=== PATIENT | female | born 1985 | race Caucasian/White ===

== ENCOUNTER 2023-06-24 09:29 | Outpatient (AMB) | payer SELFPAY ==
--- NOTE | 2023-06-24 11:19 | AM.OFFWIN_ITS ---
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 Patient Tobacco Use Status: Never used Tobacco Allergies No Known Allergies [No Known Allergies*] Allergy (Unverified 06/24/23 11:23) Do you need a note to return to daycare/school/sports/work: Yes HPI HPI Comments History of Present Illness Details Patient is a 38-year-old female in today for a sick visit she has no significant past medical history. She is not currently take any medications. She has developed symptoms of cough, sore throat, phlegm production (green), headache. She states that her son at home has similar symptoms. Cough gets worse at night. Denies dizziness, chest pain, shortness a breath, dyspnea on exertion, vomiting, diarrhea. [facility] Social History Patient Tobacco Use Status: Never used Tobacco Review of Systems Const Details: Constitutional : No Weight loss, No Fever, No Chills, No Fatigue, Admits some Malaise ENT/Mouth : Admits sore throat, No Rhinorrhea Eyes: No Eye Pain, No Swelling, No Redness Cardiovascular : No Chest Pain, No SOB, No Dyspnea on Exertion, No Orthopnea, No Edema, No Palpitations Respiratory : Admits Cough, Admits Sputum, No Wheezing Gastrointestinal : No Nausea, No Vomiting, No Diarrhea, No Constipation, No abdominal Pain, No Hematochezia, No Melena Genitourinary : No Dysuria, No Urinary Frequency, No Hematuria, Musculoskeletal : No joint pain, No Myalgias, No Joint Swelling Skin : No Skin Lesions, No rash Neuro : No Weakness, No Numbness, No Dizziness, No Headache Psych : No Anxiety/Panic, No Depression Heme/Lymph: No Bruising, No Bleeding,No Lymphadenopathy Endocrine : No Polyuria, No Polydipsia All other systems reviewed and are negative Physical Exam Vital Signs: Last Vital Signs Temp 98.2 F 06/24/23 11:21 Pulse 87 06/24/23 11:21 BP 118/64 06/24/23 11:21 Pulse Ox 98 06/24/23 11:21 Oxygen Delivery Method Room Air 06/24/23 11:21 BMI result Body Mass Index 27.6 Vital signs reviewed stable Const Other: Appearance: Alert.? Oriented X3.? No acute distress.? Head: Normocephalic, atraumatic, no step-offs or deformities Eyes: Pupils equal, round and reactive to light.? ENT: Pharynx normal.?TM intact, pearly jose. Positive for fusion. Neck: Normal inspection.? Neck supple.?Full ROM CVS: Normal heart rate and rhythm.? Pulses normal.? Respiratory: No respiratory distress.? Breath sounds normal.? Neuro: Oriented X 3.? No motor deficit.? No sensory deficit. CN 2-12 intact Assessment & Plan Assessment & Plan (1) Upper respiratory infection: Comment: Patient has sick family member at home with similar symptoms. Phlegm production which is green. Will give azithromycin, benzonatate, prednisone to be taken as directed. Patient has been educated on signs of worsening symptoms and when to return to the walk-in or when to present to the emergency room. Patient states that she understands this. And agrees Code(s): J06.9 - Acute upper respiratory infection, unspecified Qualifiers: URI type: unspecified URI Qualified Code(s): J06.9 - Acute upper respiratory infection, unspecified Plan: Take your medications as prescribed. If you were prescribed antibiotics today, it is important that you take your medication to their entirety, do not skip any doses, do not finish them early. Follow-up with your primary care provider this week. Return to the emergency department with new or worsening symptoms. Such as fevers, chills, chest pain, shortness of breath, nausea, vomiting, dizziness, headache, vision changes, lethargy In case of emergency call 911 Plan Of follow-up with PCP Orders: Orders SARS-CoV2/FLU/RSV Today J06.9 - Acute upper respiratory infection, unspecified Medications: New prednisone 20 mg PO BID 10 tabs 0RF benzonatate 100 mg PO BID PRN 20 caps 0RF cough azithromycin For 250 mg dose pack: take 500 mg today (day 1), then 250 mg for 4 days (days 2-5) PO 6 tabs 0RF Coding Level of Care Code New Pt Level 4 (12862) Diagnoses Upper respiratory tract infection, unspecified type J06.9 URI type: unspecified URI Time Spent (min) 20
[2023-06-24 11:21] VITALS: BP 118/64; PULSE 87; TEMP 36.8; O2SAT 98; BMI 27.6
== END 2023-06-24 11:57 | disposition home or self-care (01) ==
PROVIDERS: PCP Physician Assistant Medical; Visit Provider Nurse Practitioner Primary Care
DX: J06.9 Acute upper respiratory infection, unspecified (principal)
CPT/HCPCS: 99204

== ENCOUNTER 2023-06-24 13:21 | Outpatient (REF) | payer SELFPAY ==
[2023-06-24 14:36] LABS: Influenza A PCR POSITIVE (Negative); Influenza B PCR NEGATIVE (Negative); Resp Syncy Virus RNA Qual PCR NEGATIVE (Negative); SARS COV2 PCR INHOUSE NEGATIVE (Negative)
== END 2023-06-24 13:22 | disposition home or self-care (01) ==
LOC: HO.HMGCLNP 13:21
PROVIDERS: Visit Provider Nurse Practitioner Primary Care
DX: Z11.52 Encounter for screening for COVID-19 (principal); J06.9 Acute upper respiratory infection, unspecified
CPT/HCPCS: 0241U

== ENCOUNTER 2024-03-04 10:57 | Outpatient (AMB) | payer BC, SELFPAY ==
--- NOTE | 2024-03-04 11:02 | MHC.PC.OV ---
Vital Signs 03/04/24 11:06 Height 5 ft 6.14 in Weight 178 lb 8 oz BMI 28.7 BP 108/68 Blood Pressure Location Rt brachial Position Sitting Respiration 12 Pulse 87 Pulse Source Pulse Oximeter Temp 98.4 F Temp Source Oral Pulse Oximetry (%) 98 Oxygen Delivery Method Room Air Intake Visit Reasons: NPV Hair loss Intake Note: New patient visit Technicians And Trades Workers Required: No Allergies No Known Allergies [No Known Allergies*] Allergy (Verified 03/04/24 11:04) Tobacco use date assessed: 03/04/24 Dental Screening Dental Screen Date: 03/04/24 Did you have a dental visit in the last 12 months?: Yes Did you have a dental problem in the last 6 months where you did not have access to dental care?: No Was dental information given to patient?: Patient has dentist HPI HPI Comments History of Present Illness Details This is a 39-year-old female with a past medical history of hyperhidrosis presenting to [facility]. She transferred from [facility]. She is a teacher in the [employer]. She is here with concerns about hair loss. About 4 years ago her hairdresser told her she had a bald patch on the back of her scalp. Since it did not bother her, and there were no other scalp issues she did not seek medical attention. Her recently noticed another bald patch that is new near it. The patches are a little itchy, but other than that they do not bother her. She has no known dermatological conditions. She notices her fingernails and toenails are more brittle the past few months. She does not take supplements or vitamins. She started semaglutide in 2022 well after she developed the 1st bald patch. Now she is only taking it every other week or only taking the lowest dose of the medication since she had 35 lb of weight loss with it. She has no dietary restrictions. She is a nonsmoker. She drinks alcohol rarely. There is no personal or family history of autoimmune disease to her knowledge. I referred her to Gynecology for an annual exam. She had a mammogram done last year, and she will call to schedule her appointment this year. ROS: Constitutional: No unexplained weight loss, fever, chills, fatigue or night sweats. Gastrointestinal: No anorexia, nausea, vomiting or diarrhea. No abdominal pain Hematologic/Lymphatics: No bleeding or bruising. No painful lymph nodes. Musculoskeletal: No joint pain or swelling. Skin: No rash Endocrine: No cold or heat intolerance. No polyuria or polydipsia. Physical exam: Constitutional: Alert, in no distress. Neck: Supple, Full range of motion. No lymphadenopathy. No palpable thyroid masses. Respiratory: Clear to auscultation. Cardiovascular: S1 S2 regular. No murmurs. . Skin: There are two bald patches on the posterior scalp. There is some hair breakage on the superior patch. There is no apparent rash, redness or scaling. No excoriations. Extremities: Warm and well perfused. No clubbing, cyanosis or edema. Psychiatric: Normal mood and affect [facility] Medical History (Updated 03/04/24 @ 13:18 by VALDEMAR Callaway) Brittle nails Hyperhidrosis Hair loss Social History Housing: Apartment ([facility]) Patient Tobacco Use Status: Never used Tobacco e-Cigarette/Vaping Use: Never Used service: No Current occupational status: employed Current occupation: Teacher Current occupational exposures/hazards: No Cognitive needs: No Hearing needs: No Vision needs: No Questionnaire AUDIT C Alcohol Use Questionnaire (AUDIT-C) 1. How often do you have a drink containing alcohol?: Monthly or less 2. How many drinks containing alcohol do you have on a typical day when you are drinking?: 1 or 2 3. How often do you have six or more drinks on one occasion?: Never Total Score: 1 Physical exam (Primary Care) Vital Signs: Last Vital Signs Temp 98.4 F 03/04/24 11:06 Pulse 87 03/04/24 11:06 Resp 12 03/04/24 11:06 BP 108/68 03/04/24 11:06 Pulse Ox 98 03/04/24 11:06 Oxygen Delivery Method Room Air 03/04/24 11:06 BMI result Body Mass Index 28.7 Tobacco/Smoking Status: Tobacco use Status Tobacco use date assessed 03/04/24 03/04/24 11:09 Patient Tobacco Use Status Never used Tobacco 03/04/24 11:04 e-Cigarette/Vaping Use Never Used 03/04/24 11:09 Assessment and Plan Assessment & Plan (1) Hair loss: Code(s): L65.9 - Nonscarring hair loss, unspecified (2) Hyperhidrosis: Code(s): R61 - Generalized hyperhidrosis (3) Brittle nails: Code(s): L60.3 - Nail dystrophy Plan 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 Ordered labs to look for underlying causes of hair loss. We discussed that weight loss and taking semaglutide may contribute to these symptoms however she developed initial hair loss long before starting this medication. She is referred to Dermatology for hair loss and hyperhidrosis. Patient's nails were painted today so I could not examine them. Asked her to remove nail Uzbek for her dermatology visit. She agrees. She will schedule her physical exam. Orders: Orders TSH reflex Free T4 Today L65.9 - Nonscarring hair loss, unspecified, R61 - Generalized hyperhidrosis Complete Blood Count Auto Diff Today L65.9 - Nonscarring hair loss, unspecified, R61 - Generalized hyperhidrosis Erythrocyte Sedimentation Rate Today L65.9 - Nonscarring hair loss, unspecified, R61 - Generalized hyperhidrosis MICHELE Reflex Titer and Pattern Today L65.9 - Nonscarring hair loss, unspecified, R61 - Generalized hyperhidrosis Zinc Today L65.9 - Nonscarring hair loss, unspecified Vitamin B2 (Riboflavin) Today L65.9 - Nonscarring hair loss, unspecified Comprehensive Met. Panel Today L65.9 - Nonscarring hair loss, unspecified, R61 - Generalized hyperhidrosis Vitamin B12 and Folate Today L65.9 - Nonscarring hair loss, unspecified, R61 - Generalized hyperhidrosis Vitamin B6 Today L65.9 - Nonscarring hair loss, unspecified Other Ref Test - Misc Today L65.9 - Nonscarring hair loss, unspecified Vitamin D 1,25 dihydroxy Today L65.9 - Nonscarring hair loss, unspecified Referrals Dermatology Referral L60.3 - Nail dystrophy, L65.9 - Nonscarring hair loss, unspecified, R61 - Generalized hyperhidrosis CAMPAIGN DIRECTOR Referral Z01.419 - Encounter for gynecological examination (general) (routine) without abnormal findings Coding Level of Care Code New Pt Level 3 (40215) Complex EM visit Add On G2211 Diagnoses Hair loss L65.9 Hyperhidrosis R61 Brittle nails L60.3
[2024-03-04 11:06] VITALS: BP 108/68; PULSE 87; RESP 12; TEMP 36.9; O2SAT 98; BMI 28.7
== END 2024-03-04 11:44 | disposition home or self-care (01) ==
PROVIDERS: PCP Physician Assistant Medical; Visit Provider Physician Assistant Medical
DX: L65.9 Nonscarring hair loss, unspecified (principal); R61 Generalized hyperhidrosis; L60.3 Nail dystrophy

== ENCOUNTER 2024-03-04 10:57 | Outpatient (REF) | payer BC, SELFPAY ==
[2024-03-04 14:54] LABS: MANUAL DIFF FLAG NO
[2024-03-04 15:14] LABS: Basophils Absolute Auto 0.1 X10*3/uL (0.0-0.2); Basophils Percent Auto 1.2 % (0-2); Eosinophils Absolute Auto 0.3 X10*3/uL (0.0-0.4); Eosinophils Percent Auto 2.5 % (0-4); Hematocrit 38.7 % (37.0-47.0); Hemoglobin 13.2 g/dl (12.0-16.0); Imm Gran Abs Auto 0.03 X10*3/uL (0.00-0.03); Imm Gran Pct Auto 0.3 % (0.0-0.4); Lymphocytes Absolute Auto 2.5 X10*3/uL (1.2-4.9); Lymphocytes Percent Auto 24.7 % (20-40); Mean Corpuscular HGB Conc 34.1 g/dl (31.0-35.0); Mean Corpuscular Hemoglobin 29.9 pg (27.0-33.0); Mean Corpuscular Volume 87.6 fL (80.0-98.0); Mean Platelet Volume 10.1 fL (9.4-12.3); Monocytes Absolute Auto 0.6 X10*3/uL (0.1-1.2); Monocytes Percent Auto 5.9 % (2-11); Neutrophils Absolute Auto 6.6 x10*3/uL (2.0-8.3); Neutrophils Percent Auto 65.4 % (45-73); Platelet Count 254 X10*3/uL (160-400); Red Blood Count 4.42 X10*6/uL (4.20-5.50); Red Cell Distribution Width 12.1 % (11.0-16.0); White Blood Count 10.1 X10*3/uL (4.8-10.8)
[2024-03-04 16:01] LABS: Alanine Aminotransferase 13 U/L (0-31); Albumin Level 4.1 g/dL (3.5-5.0); Alkaline Phosphatase 64 U/L (39-117); Anion Gap 11 (12-20); Aspartate Amino Transferase 15 U/L (5-31); Bilirubin Total 1.1 mg/dL (0.0-1.0); Blood Urea Nitrogen 16 mg/dL (9-16); Calcium 9.1 mg/dL (8.4-10.2); Carbon Dioxide 24 mmol/L (22-29); Chloride 107 mmol/L (96-108); Estimated Glomerular Filt Rate > 60; Glucose Random 82 mg/dL (60-115); Potassium 4.1 mmol/L (3.3-5.1); Sodium 138 mmol/L (135-145); Total Protein 7.3 g/dL (6.5-8.0)
[2024-03-04 16:08] LABS: TSH reflex Free T4 0.65 uIU/mL (0.32-4.0)
[2024-03-04 16:31] LABS: Folate 8.4 ng/mL (> or = 4.0); Vitamin B12 1236 pg/mL (200-900)
[2024-03-04 17:34] LABS: Erythrocyte Sedimentation Rate 13 MM/HR (0-20)
[2024-03-08 13:38] LABS: Vitamin B6 8.3 ng/mL (2.1-21.7)
[2024-03-09 00:34] LABS: Zinc 48 mcg/dL (60-130)
[2024-03-09 01:24] LABS: VITAMIN D (1,25 OH) D3 57 pg/mL; Vit D (1,25-Dihydroxy) Total 57 pg/mL (18-72); Vitamin D (1,25 OH) D2 <8 pg/mL
[2024-03-10 07:29] LABS: Anti Nuclear Antibody Screen POSITIVE (NEGATIVE)
[2024-03-11 14:04] LABS: Vitamin B2 (Riboflavin) 5.8 nmol/L (6.2-39.0)
== END 2024-03-04 10:58 | disposition home or self-care (01) ==
LOC: HO.WFDLDS 10:57
PROVIDERS: PCP Physician Assistant Medical; Visit Provider Physician Assistant Medical
DX: L65.9 Nonscarring hair loss, unspecified (principal); R61 Generalized hyperhidrosis
CPT/HCPCS: 36415; 80053; 82607; 82652; 82746; 84207; 84252; 84443; 84630; 85025; 85652; 86038; 86039

== ENCOUNTER 2024-03-05 08:55 | Outpatient (REF) | payer BC, SELFPAY | END 2024-03-05 08:56 | disposition home or self-care (01) | LOC: HO.LAB 08:55 | PROVIDERS: PCP Physician Assistant Medical; Visit Provider Physician Assistant Medical | DX: L65.9 Nonscarring hair loss, unspecified (principal) | CPT/HCPCS: 84591 ==

== ENCOUNTER 2024-03-15 08:22 | Outpatient (AMB) | payer BC, SELFPAY ==
--- NOTE | 2024-03-15 08:25 | A.OFFPC_ITS ---
Vital Signs 03/15/24 08:28 Height 5 ft 6.14 in Weight 179 lb 4 oz BMI 28.8 BP 98/78 Blood Pressure Location Rt brachial Position Sitting Respiration 14 Pulse 87 Pulse Source Pulse Oximeter Pulse Oximetry (%) 98 Oxygen Delivery Method Room Air Intake Visit Reasons: CPE Intake Note: Physical Collateral Specialist Required: No Allergies No Known Allergies [No Known Allergies*] Allergy (Verified 03/15/24 08:28) Tobacco use date assessed: 03/04/24 Dental Screening Dental Screen Date: 03/04/24 HPI HPI Comments History of Present Illness Details This is a 39-year-old female with a past medical history of hair loss and hyperhidrosis presenting for a physical exam. I saw her recently for hair loss. She has started the multivitamin after labs demonstrated zinc and B2 deficiency. She has an appointment in March scheduled with [facility]. I reiterated that I believe she has alopecia areata. Patient has been referred to Gynecology for an annual exam. She is up-to-date with eye and dental exams. She has no personal or family history of colon cancer. We discussed colonoscopy will be due at age 43 years. 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 I gave her the order for a mammogram today. She will call [facility] to schedule it. ROS: Constitutional: No unexplained weight loss, fever, chills, fatigue or night sweats. Eyes: No vision changes, blurry vision, double vision, eye pain, eye redness, eye discharge. ENT: No hearing loss, sneezing, congestion, runny nose or sore throat. Respiratory: No shortness of breath, cough or sputum production. Cardiovascular: No chest pain, chest pressure or chest discomfort. No palpitations or pedal edema. Gastrointestinal: No anorexia, nausea, vomiting or diarrhea. No abdominal pain or blood in stool. Genitourinary: No dysuria, hematuria, urinary frequency. Neurologic: No headache, dizziness, syncope, unilateral weakness, ataxia, numbness or tingling in the extremities. Musculoskeletal: No muscle pain, back pain, joint pain or swelling. Hematologic/Lymphatics: No bleeding or bruising. No painful lymph nodes. Skin: No rash or itching. Endocrine: No cold or heat intolerance. No polyuria or polydipsia. Psychiatric: No depression or anxiety. No SI/HI. Physical exam: Constitutional: Alert, in no distress. Head: Normocephalic. Eyes: Pupils are equal, round and reactive to light. Extraocular muscles intact. Ear, Nose and Throat: Canals clear. TMs normal. Normal nasal mucosa. No nasal discharge. No oral lesions. Neck: Supple, Full range of motion. No lymphadenopathy. No palpable thyroid masses. Respiratory: Clear to auscultation. Cardiovascular: S1 S2 regular. No murmurs. Gastrointestinal: Abdomen soft, non-tender, non-distended. Normal bowel sounds. No palpable masses. Neurologic: No focal neurological deficits. Symmetric patellar reflexes. Moves all extremities spontaneously. Sensation intact bilaterally. Skin: No rashes or lesions. Musculoskeletal: No gross deformities. Normal range of motion. Extremities: Warm and well perfused. No clubbing, cyanosis or edema. 3+ peripheral pulses bilaterally. Psychiatric: Normal mood and affect [facility] Medical History (Updated 03/12/24 @ 09:37 by VALDEMAR Callaway) Riboflavin (vitamin B2) deficiency Zinc deficiency Brittle nails Hyperhidrosis Hair loss Social History Housing: Apartment ([facility]) Patient Tobacco Use Status: Never used Tobacco e-Cigarette/Vaping Use: Never Used service: No Current occupational status: employed Current occupation: Teacher Current occupational exposures/hazards: No Cognitive needs: No Hearing needs: No Vision needs: No Physical exam (Primary Care) Vital Signs: Last Vital Signs Pulse 87 03/15/24 08:28 Resp 14 03/15/24 08:28 BP 98/78 03/15/24 08:28 Pulse Ox 98 03/15/24 08:28 Oxygen Delivery Method Room Air 03/15/24 08:28 BMI result Body Mass Index 28.8 Tobacco/Smoking Status: Tobacco use Status Tobacco use date assessed 03/04/24 03/15/24 08:25 Patient Tobacco Use Status Never used Tobacco 03/15/24 08:25 e-Cigarette/Vaping Use Never Used 03/15/24 08:25 Assessment and Plan Assessment & Plan (1) Routine physical examination: Code(s): Z00.00 - Encounter for general adult medical examination without abnormal findings (2) Riboflavin (vitamin B2) deficiency: Code(s): E53.0 - Riboflavin deficiency (3) Zinc deficiency: Code(s): E60 - Dietary zinc deficiency (4) Brittle nails: Code(s): L60.3 - Nail dystrophy (5) Hair loss: Code(s): L65.9 - Nonscarring hair loss, unspecified Plan Patient is seen today for a routine physical. As part of this visit we reviewed the following issues, which are considered and essential part of preventative health in this age group: - Breast Cancer screening - Annual Outreach Consultant exam - Screening for colon cancer - Blood pressure screening - Cholesterol screening - Osteoporosis prevention including calcium/vitamin D intake, weight bearing exercise & smoking cessation - Nutritional and exercise counseling - Counseling of injury prevention including fire prevention, smoke alarms and seat belt usage - Screening for depression - Prevention of and/or testing for infectious diseases - Education about skin cancer - Recommendations about immunizations - Recommendation of an eye exam - Screening for substance abuse Patient will return in 6 weeks to recheck labs and have a fasting cholesterol profile done. She will follow up with Dermatology as planned. Follow up in 1 year for a physical exam. Orders: Orders Lipid Panel Today Z13.6 - Encounter for screening for cardiovascular disorders MM screening mammo BI Today Z12.31 - Encounter for screening mammogram for malignant neoplasm of breast Coding Level of Care Code Est Pt Prev Care 40-64y(18329) Diagnoses Routine physical examination Z00.00 Riboflavin (vitamin B2) deficiency E53.0 Zinc deficiency E60 Brittle nails L60.3 Hair loss L65.9
[2024-03-15 08:28] VITALS: BP 98/78; PULSE 87; RESP 14; O2SAT 98; BMI 28.8
--- NOTE | 2024-03-15 15:42 | A.OFFPC_ITS ---
Vital Signs 03/15/24 08:28 Height 5 ft 6.14 in Weight 179 lb 4 oz BMI 28.8 BP 98/78 Blood Pressure Location Rt brachial Position Sitting Respiration 14 Pulse 87 Pulse Source Pulse Oximeter Pulse Oximetry (%) 98 Oxygen Delivery Method Room Air Intake Visit Reasons: CPE Intake Note: Physical Field Producer Required: No Allergies No Known Allergies [No Known Allergies*] Allergy (Verified 03/15/24 08:28) Tobacco use date assessed: 03/04/24 Dental Screening Dental Screen Date: 03/04/24 Did you have a dental visit in the last 12 months?: Yes Did you have a dental problem in the last 6 months where you did not have access to dental care?: No Was dental information given to patient?: Patient has dentist [facility] Medical History (Updated 03/12/24 @ 09:37 by VALDEMAR Callaway) Riboflavin (vitamin B2) deficiency Zinc deficiency Brittle nails Hyperhidrosis Hair loss Social History Housing: Apartment ([facility]) Patient Tobacco Use Status: Never used Tobacco e-Cigarette/Vaping Use: Never Used service: No Current occupational status: employed Current occupation: Teacher Current occupational exposures/hazards: No Cognitive needs: No Hearing needs: No Vision needs: No Questionnaire PHQ-9 Over the last 2 weeks, how often have you been bothered by any of the following problems? 1. Little interest or pleasure in doing things: not at all 2. Feeling down, depressed, or hopeless: not at all 3. Trouble falling or staying asleep, or sleeping too much: not at all 4. Feeling tired or having little energy: several days 5. Poor appetite or overeating: not at all 6. Feeling bad about yourself - or that you are a failure or have let yourself or your family down: not at all 7. Trouble concentrating on things, such as reading the newspaper or watching television: not at all 8. Moving or speaking so slowly that other people could have noticed. Or the opposite - being so fidgety or restless that you have been moving around a lot more than usual: not at all 9. Thoughts that you would be better off or of hurting yourself in some way: not at all Total score: 1 Depression Screening Interpretation: Negative Depression Screening Done: Yes 42760 - PHQ-9 Billing: Yes Source: Developed by Drs. Justin Hawthorne, Duran Echevarria and colleagues, with an educational jossy from [employer]. Thrive Questionnaire Date Thrive assessed: 03/15/24 I am a: Patient What is your living situation today?: I have a steady place to live Within the past 12 months, did the food you bought not last and you didn't have the money to get more?: Never true Within the past 12 months, did you worry whether your food would run out before you got money to buy more?: Never true Do you have trouble paying for medicines?: No Do you have trouble getting transportation to medical appointments?: No Do you have trouble paying your heating and electricity bill?: No Do you have trouble taking care of your child, family member or friend?: No Do you have trouble with day-to-day activities such as bathing, preparing meals, shopping, managing finances, etc.?: No Are you currently unemployed and looking for a job?: No Are you interested in more education?: No Please select the resources that you would like help with: None Currently or been in a relationship where the following occur: No concerns reported THRIVE Score: 0 AUDIT C Alcohol Use Questionnaire (AUDIT-C) 1. How often do you have a drink containing alcohol?: Never 3. How often do you have six or more drinks on one occasion?: Never Total Score: 0 MERLE-7 AMB Questionnaire MERLE-7 Date MERLE - 7 assessed: 03/15/24 Feeling nervous, anxious, or on edge: 0 = Not at all Not being able to stop or control worryin = Not at all Worrying too much about different things: 0 = Not at all Trouble relaxin = Not at all Being so restless that it is hard to sit still: 0 = Not at all Becoming easily annoyed or irritable: 0 = Not at all Feeling afraid as if something awful might happen: 0 = Not at all Total MERLE-7 score (0-4 normal; 5-9 mild; 10-14 moderate; 15-21 severe): 0 Source: Developed by Drs. Justin Hawthorne, Duran Echevarria and colleagues, with an educational jossy from [employer]. MERLE-7 Assessment Billing MERLE-7 Assessment Tool: MERLE-7 Assessment 25880 Physical exam (Primary Care) Vital Signs: Last Vital Signs Pulse 87 03/15/24 08:28 Resp 14 03/15/24 08:28 BP 98/78 03/15/24 08:28 Pulse Ox 98 03/15/24 08:28 Oxygen Delivery Method Room Air 03/15/24 08:28 BMI result Body Mass Index 28.8 Tobacco/Smoking Status: Tobacco use Status Tobacco use date assessed 03/04/24 03/15/24 08:25 Patient Tobacco Use Status Never used Tobacco 03/15/24 08:25 e-Cigarette/Vaping Use Never Used 03/15/24 08:25 Depression Screening Interpretation: Negative Currently or been in a relationship where the following occur: No concerns reported Assessment and Plan Assessment & Plan (1) Riboflavin (vitamin B2) deficiency: Code(s): E53.0 - Riboflavin deficiency (2) Zinc deficiency: Code(s): E60 - Dietary zinc deficiency (3) Brittle nails: Code(s): L60.3 - Nail dystrophy (4) Hair loss: Code(s): L65.9 - Nonscarring hair loss, unspecified Orders: Orders Lipid Panel Today Z13.6 - Encounter for screening for cardiovascular disorders MM screening mammo BI Today Z12.31 - Encounter for screening mammogram for malignant neoplasm of breast Coding Diagnoses Riboflavin (vitamin B2) deficiency E53.0 Zinc deficiency E60 Brittle nails L60.3 Hair loss L65.9 Additional Codes MERLE-7 Assessment Billing - MERLE-7 Assessment Tool: MERLE-7 Assessment [id number] ([id number])
== END 2024-03-15 09:03 | disposition home or self-care (01) ==
PROVIDERS: PCP Physician Assistant Medical; Visit Provider Physician Assistant Medical
DX: Z00.00 Encounter for general adult medical examination without abnormal findings (principal); E53.0 Riboflavin deficiency; E60 Dietary zinc deficiency; L60.3 Nail dystrophy; L65.9 Nonscarring hair loss, unspecified

== ENCOUNTER → 2024-03-15 08:22 | Outpatient (BNVA) | payer BC, SELFPAY | PROVIDERS: PCP Physician Assistant Medical; Visit Provider Physician Assistant Medical ==